=== PATIENT | male | born 1990 | race Caucasian/White ===

== ENCOUNTER → 2022-06-09 | Outpatient (CLI) | payer OTHER, SELFPAY ==
[2022-06-09 10:50] LABS: Erythrocyte Sedimentation Rate 5 mm/hr (0-20)
[2022-06-09 10:52] LABS: Absolute Lymphocyte Count 1.24 X10^3/uL (0.83-4.51); Absolute Neutrophil Count 4.2 X10^3/uL (2.0-7.7); Basophil# 0.02 X10^3/uL; Basophil% 0.3 % (0-1); Eosinophil# 0.04 X10^3/uL; Eosinophils% 0.6 % (0-5); Hematocrit 44.5 % (40-54); Hemoglobin 14.9 g/dL (13.0-16.5); Lymphocyte # 1.24 X10^3/ul (0.83-4.51); Mean Corp Hgb Conc 33.5 g/dL (32-36); Mean Corpuscular Hgb 30.5 pg (27.0-32.0); Mean Platelet Vol. 11.2 fl (6.2-12.0); Monocyte# 0.72 X10^3/uL; Monocyte% 11.6 % (0-10); NRBC Flagged by Analyzer 0 % (0-5); Neutrophil # 4.17 X10^3/uL (2.7-7.7); Neutrophil % 67.3 % (47-70); Platelet Count 196 K/mm3 (150-450); RBC Distribution Width CV 12.3 % (11.6-14.6); RBC Distribution Width SD 40.7 fl (35.1-43.9); Red Blood Count 4.89 M/mm3 (4.6-6.2); White Blood Count 6.2 K/mm3 (4.4-11.0)
[2022-06-09 11:26] LABS: ALB/GLOB Ratio 1.1 RATIO (0.9-2.4); AST(SGOT) 16 U/L (15-37); Alanine Aminotransfer ALT/SGPT 21 U/L (16-61); Albumin, Serum 4.2 g/dL (3.2-5.0); Alkaline Phosphatase 71 U/L (45-117); Anion Gap 6 (5-15); BUN 17 mg/dL (7-18); BUN/Creat Ratio 16.3 RATIO (10-20); CRP < 2.90 mg/L (0.0-3.0); Chloride 105 mmol/L (98-107); Creatinine, Serum 1.04 mg/dL (0.70-1.30); EST Glomerular Filtration Rate 89 mL/min (>60); Est Glom Filt Rate - Afr Amer 108 mL/min (>60); Globulin 3.8 g/dL (2.2-4.2); Glucose 104 mg/dL (74-106); LDH 128 U/L (87-241); Sodium Level 140 mmol/L (136-145)
[2022-06-10 12:08] LABS: Anti-Centromere B Ab <0.2 AI (0.0-0.9); Anti-Chromatin <0.2 AI (0.0-0.9); Anti-Jo <0.2 AI (0.0-0.9); Anti-Scleroderma-70 AB <0.2 AI (0.0-0.9); RNP Ab 0.2 AI (0.0-0.9); SJOGREN'S Anti-SS-A test < 0.2 AI (0.0-0.9); SJOGREN'S Anti-SS-B test < 0.2 AI (0.0-0.9); Smith Ab <0.2 AI (0.0-0.9)
[2022-06-10 13:22] LABS: Anti-dsDNA Ab 1 IU/mL (0-9)
[2022-06-11 09:08] LABS: Endomysial Antibody IgA Negative (Negative)
[2022-06-11 13:46] LABS: Immunoglobulin A 248 mg/dL (90-386); t-Transglutaminase IgA <2 U/mL (0-3)
[2022-06-14 08:09] LABS: Albumin 4.1 g/dL (2.9-4.4); Alpha-1-Globulins 0.2 g/dL (0.0-0.4); Alpha-2-Globulins 0.6 g/dL (0.4-1.0); Cytoplasmic Ab (C-ANCA) <1:20 titer (Neg:<1:20); Gamma Globulin 1.5 g/dL (0.4-1.8); Immunoglobulin A 240 mg/dL (90-386); Immunoglobulin E 113 IU/mL (6-495); Immunoglobulin G 1310 mg/dL (603-1613); Immunoglobulin M 164 mg/dL (20-172); PROEL- TOTAL PROTEIN 7.4 g/dL (6.0-8.5)
[2022-06-14 17:12] LABS: Perinuclear Ab (P-ANCA) <1:20 titer (Neg:<1:20)
== END | disposition home or self-care (01) ==
PROVIDERS: Referring Provider Nurse Practitioner Adult Health; Visit Provider Nurse Practitioner Adult Health
DX: R19.8 Other specified symptoms and signs involving the digestive system and abdomen (principal); K62.5 Hemorrhage of anus and rectum
CPT/HCPCS: 36415; 80053; 82784; 82785; 83516; 83615; 84165; 85025; 85652; 86140; 86225; 86235; 86255; 86256; 86334

== ENCOUNTER → 2022-07-02 | Outpatient (CLI) | payer OTHER, SELFPAY ==
[2022-07-04 08:18] LABS: Hepatitis B Surface Antibody Non-Reactive; Rubella IgG Reactive (Nonreactive)
[2022-07-06 15:08] LABS: HEPATITIS B SURFACE AG Negative (Negative); Hep C Antibodies 0.1 s/co ratio (0.0-0.9); Hepatitis A IgM Antibody Negative (Negative); Hepatitis B Core AB IgM Negative (Negative); QNTFERON TB Mitogen Value > 10.00 IU/mL (.); QNTFERON TB Nil Value 0.02 IU/mL (.); QNTFERON TB1+ Ag Value 0.02 IU/mL (.); QNTFERON TB2+ Ag Value 0.03 IU/mL (.)
[2022-07-06 15:32] LABS: Calprotectin, Stool 121 ug/g (0-120)
[2022-07-07 07:39] LABS: QNTIFERON TB Positive Criteria Negative (Negative); Rubeola IgG Ab 94.6 AU/mL (Immune >16.4); V-Zoster IgG (Immunity) 580 index (Immune >165)
== END | disposition home or self-care (01) ==
LOC: LABSPEC 09:07
PROVIDERS: Referring Provider Nurse Practitioner Adult Health; Visit Provider Nurse Practitioner Adult Health
DX: R19.8 Other specified symptoms and signs involving the digestive system and abdomen (principal); K51.90 Ulcerative colitis, unspecified, without complications; K62.5 Hemorrhage of anus and rectum
CPT/HCPCS: 36415; 80074; 83630; 83993; 86480; 86706; 86735; 86762; 86765; 86787

== ENCOUNTER → 2022-07-18 | Outpatient (CLI) | payer OTHER, SELFPAY ==
--- NOTE | 2022-07-18 07:30 | CT_ITS ---
EXAM: CT ABDOMEN AND PELVIS WITH INTRAVENOUS CONTRAST CLINICAL INDICATION: ulcerative colitis -- oral and iv TECHNIQUE: Helically acquired images were obtained of the abdomen and pelvis with intravenous contrast. This CT exam was performed using one or more of the following dose reduction techniques: automated exposure control, adjustment of the mA and/or kV according to patient size, and/or use of iterative reconstruction technique. This report was created using [employer] report generation technology. CONTRAST: Oral and amp; IV Readi-CAT and amp; 100mL Isovue-300 COMPARISON: None. FINDINGS: LOWER THORAX: Normal. Lung bases are clear. No cardiomegaly. No pericardial effusion. ABDOMEN: LIVER: Normal. Homogeneous. No focal mass. GALLBLADDER AND BILE DUCTS: Normal. No calcified gallstones. No gallbladder distention or wall edema. No intra- or extrahepatic biliary ductal dilation. PANCREAS: Normal. No focal cystic or solid mass. SPLEEN: Normal. Normal size without focal cystic or solid mass. ADRENALS: Normal. No nodules. KIDNEYS AND URETERS: Normal. Normal renal size and position. No hydronephrosis. STOMACH AND BOWEL: Normal. No bowel distention. No focal inflammatory change. PELVIS: APPENDIX: Appendix is visualized and normal in appearance. BLADDER: Normal. REPRODUCTIVE: Unremarkable as visualized. No mass. ABDOMEN and PELVIS: INTRAPERITONEAL SPACE: Trace amount of free fluid noted within the pelvis of uncertain significance. No free air. BONES/JOINTS: Normal. No suspicious lytic or blastic abnormality. SOFT TISSUES: Normal. No discrete abdominal or pelvic wall hernia. VASCULATURE: Normal. Abdominal aorta is non-dilated. LYMPH NODES: Normal. No enlarged lymph nodes. CT/Abdomen/Pelvis WITH Contrast IMPRESSION: No evidence of inflammatory bowel disease. Electronically Signed: Torsten Chaney MD at 7:58 EDT ,
== END | disposition home or self-care (01) ==
PROVIDERS: Referring Provider Nurse Practitioner Adult Health; Visit Provider Nurse Practitioner Adult Health
DX: K51.90 Ulcerative colitis, unspecified, without complications (principal); K62.5 Hemorrhage of anus and rectum; R19.8 Other specified symptoms and signs involving the digestive system and abdomen
CPT/HCPCS: 74177; Q9967

== ENCOUNTER 2022-08-25 05:29 | Day surgery (SDC) | payer OTHER, SELFPAY ==
--- NOTE | 2022-08-25 | COLBX_PTH ---
PATIENT: RENÉ SILVESTRE LOC: [facility] U#:[id number] AGE/SX: 32/M ROOM: RE08/25/[address]: Dr. Pablo Robles DO : 1990 BED: DIS: 08/25/2022 SPEC #: [id number] RECD: 08/25/22 12:48 STATUS: SHERI ZULEYKA #: [id number] GERALDO: 08/25/22 00:[address]: Pablo Robles DEPT: SURGICAL PATHOLOGY RECD BY: Michael Vargas ENTERED: 08/25/22 12:49 SP TYPE: COLON BX OTHR DR: JESSA Sinclair Tissues: A - Ileum, NOS B - Ascending colon C - Transverse colon D - Descending colon E - Sigmoid colon biopsy F - Rectum, NOS Procedures: Surgery Specimen Level IV HEADER OPERATION: Colonoscopy (MAC) PRE-OP DIAGNOSIS: Rectal tenesmus TISSUE SUBMITTED: A ? Terminal ileum biopsy, B ? Ascending colon biopsy, C ? Transverse colon biopsy, D ? Descending colon biopsy, E ? Sigmoid colon biopsy, F ? Rectal biopsy MICROSCOPIC DIAGNOSIS A. Terminal ileum, biopsy: No pathologic change. B. Ascending colon, biopsy: No pathologic change. C. Transverse colon, biopsy: No pathologic change. D. Descending colon, biopsy: No pathologic change. E. Sigmoid colon, biopsy: No pathologic change. F. Rectum, biopsy: Chronic active colitis. See comment. AM:melanie 08/26/2022 COMMENT F. Sections show glandular distortion, expansion of lamina propria by inflammatory cells and focal cryptitis. Prominent lymphoid aggregates are present; however, no granulomas are identified. No fissuring ulcers are seen and there is no evidence of dysplasia. Clinical correlation is suggested. MICROSCOPIC DESCRIPTION Slides are reviewed. GROSS DESCRIPTION A - Received in fixative is one container labeled with the patient's name and designated terminal ileum. The specimen consists of multiple irregular fragments of light chau soft tissue that in aggregate measure 1.5 x 0.3 x 0.1 cm. The specimen is totally submitted in one cassette. B - Received in fixative is one container labeled with the patient's name and designated ascending colon biopsy. The specimen consists of multiple irregular fragments of light chau soft tissue that in aggregate measure 1.5 x 0.5 x 0. cm. The specimen is totally submitted in one cassette. C - Received in fixative is one container labeled with the patient's name and designated transverse colon biopsy. The specimen consists of multiple irregular fragments of light chau soft tissue that in aggregate measure 1.2 x 0.3 x 0.1 cm. The specimen is totally submitted in one cassette. D - Received in fixative is one container labeled with the patient's name and designated descending colon biopsy. The specimen consists of multiple irregular fragments of light chau soft tissue that in aggregate measure 1 x 0.4 x 0.1 cm. The specimen is totally submitted in one cassette. E - Received in fixative is one container labeled with the patient's name and designated sigmoid colon biopsy. The specimen consists of multiple irregular fragments of light chau soft tissue that in aggregate measure 1 x 0.5 x 0.1 cm. The specimen is totally submitted in one cassette. F - Received in fixative is one container labeled with the patient's name and designated rectal biopsy. The specimen consists of multiple irregular fragments of light chau soft tissue that in aggregate measure 1 x 0.5 x 0.1 cm. The specimen is totally submitted in one cassette. / SJ:rg 08/25/2022 TC:2 CPT: 12182 x6
[2022-08-25 05:51] VITALS: BP 114/76; PULSE 95; RESP 188; TEMP 36.9; O2SAT 100; BMI 22.6
[2022-08-25] MEDS: Lactated Ringers 1,000 ML 15 ML IV (06:02)
--- NOTE | 2022-08-25 06:36 | HP.PCM_ITS ---
History and Physical Date of Admission: 08/25/22 RENÉ SILVESTRE, is a 31 M who presents to the office today for episodes of bowel urgency and bright red blood per rectum.? The most recent episode was in March 2022, this lasted about 1 month.? He recalls that the first episode was probably about 5 years ago, the episodes used to be so minor that he really did not pay them any attention, they may have only lasted for a day or a week, may have only occurred once a year or so.? The episodes have always resolved spontaneously, including the most recent one. During the most recent episode in March, he had frequent trips to bathroom, feels urgent need to have BM, but then nothing happens, took laxative once since he thought he might be constipated, had a BM then but didn't give relief of the sense of needing to go.? Has urgency but then only passes some mucus or gas. Once passed stool with ruffled edges, softer than normal.? May have up to 6x per day to relieve gas, but no diarrhea. This woke him up once at night. No abdominal pains at all. No abdominal cramping. Might have line of red blood on side of stool or multiple drops of blood in the toilet bowl. Especially frequent episodes of tenesmus in the evenings when he gets home from work from 5-9 pm. Urgent tenesmus after meals but that's not the only time. Kept a food diary, d idn't find any triggers. Cut out gluten and dairy for a day but no change in symptoms.? He did not have any systemic symptoms associated with this episode or previous episodes.? Denies fever, chills, fatigue, myalgias, rashes. Denies heartburn, reflux, dysphagia, nausea, vomiting.? Since the most recent episode he is back to his normal bowel pattern; for him normal is having urgent bowel movements, typically 1 BM in the morning and possibly another 1 after work at 5 PM.? This is formed stools.? No accidents. 04/07/2022 labs: CBC within normal limits, CMP within normal limits, CRP within normal limits Occasional canker sores throughout lifetime, better over time. No rashes. No eye symptoms. No joint issues.? He has had no hospitalizations, no surgeries, no significant acute illnesses or injuries, no chronic illnesses. Eats very healthfully, no fast food or pop. He doesn't drink alcohol or smoke. He is a new car get ready mechanic. He keeps very active. 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 No family history of inflammatory bowel disease or other autoimmune disorders. ROS Const Constitutional: No fatigue ENT ENT: No difficulty swallowing Gastro GI: Positive for change in bowel habits and Blood in stool; No abdominal pain, belching, bloating, change in stool character, coffee ground emesis, constipation, cramping, diarrhea, heartburn, difficulty swallowing, feeling full early, excessive flatus, incontinent of stools, Vomiting blood/hematemesis, loose stools, Black,tarry stools, nausea/dyspepsia, pain with swallowing, vomiting or other Musc Musculoskeletal: No joint pain Skin Skin: No yellowing of the eye or itchy eyes Psych Psychiatric: No anxiety and No depression Endo Endocrine: No fatigue Aller/Imm Allergy/Immunologic: No itchy eyes Trace/Lymp Hematologic/Lymphatic: No easy bleeding or easy bruising Exam Const General: cooperative, healthy appearing and well developed Nutritional Appearance: average body habitus and well nourished Orientation: alert, awake and oriented x3 HENMT Head: normal to inspection Eyes General: appearance normal, both eyes and all related structures Neck Neck: normal visual inspection Resp Effort & Inspection: normal respiratory effort GI Inspection: normal to inspection Palpation: soft, no hepatosplenomegaly, no masses and nontender Skin General: no rashes or lesions noted Neuro Gait: normal gait Extrem General: normal to inspection Psych Mood: euthymic mood Affect: normal affect Assessment and Plan Assessment and Plan (1) Tenesmus (rectal): ?Status:?Acute ?Plan: Healthy very nice 31-year-old male with recurrent episodes of tenesmus, rectal bleeding, mucus per rectum, 1 episode of nocturnal tenesmus.? DDx is suspicious for IBD.? Start with biochemical workup, we will do stool tests for inflammat ion, labs for inflammation, autoimmune disorders, celiac disease, inflammatory bowel disease profile. Will order CT after labs are back, we will want to get enteroscopy if labs point to Crohn's.? Discussed the possibility of capsule endoscopy.? We will call him with the results of labs and the recommended next step.? Will get him scheduled for upper and lower endoscopy. (2) Rectal bleeding: ?Status:?Acute ? ? ? Orders: Orders Comprehensive Metabolic Profil Today K62.5 - Hemorrhage of anus and rectum, R19.8 - Other specified symptoms and signs involving the digestive system and abdomen ? CRP Today K62.5 - Hemorrhage of anus and rectum, R19.8 - Other specified symptoms and signs involving the digestive system and abdomen ? LDH Today K62.5 - Hemorrhage of anus and rectum, R19.8 - Other specified symptoms and signs involving the digestive system and abdomen ? CBC W/Diff, Automated Today K62.5 - Hemorrhage of anus and rectum, R19.8 - Other specified symptoms and signs involving the digestive system and abdomen ? Erythrocyte Sed Rate Today K62.5 - Hemorrhage of anus and rectum, R19.8 - Other specified symptoms and signs involving the digestive system and abdomen ? PHAM Comprehensive Panel Today K62.5 - Hemorrhage of anus and rectum, R19.8 - Other specified symptoms and signs involving the digestive system and abdomen ? Calprotectin, Stool Today K62.5 - Hemorrhage of anus and rectum, R19.8 - Other specified symptoms and signs involving the digestive system and abdomen ? Stool Lactoferrin/WBC Today K62.5 - Hemorrhage of anus and rectum, R19.8 - Other specified symptoms and signs involving the digestive system and abdomen ? ANCA Today K62.5 - Hemorrhage of anus and rectum, R19.8 - Other specified symptoms and signs involving the digestive system and abdomen ? Celiac Disease Profile Today K62.5 - Hemorrhage of anus and rectum, R19.8 - Ot her specified symptoms and signs involving the digestive system and abdomen ? Immunoglobulins G/A/M/E Today K62.5 - Hemorrhage of anus and rectum, R19.8 - Other specified symptoms and signs involving the digestive system and abdomen ? RADHA + Protein Elect, Serum Today K62.5 - Hemorrhage of anus and rectum, R19.8 - Other specified symptoms and signs involving the digestive system and abdomen ? Miscellaneous Lab Procedure Today K62.5 - Hemorrhage of anus and rectum, R19.8 - Other specified symptoms and signs involving the digestive system and abdomen ? I have re-examined the patient. There are no clinical changes since date of exam.
[2022-08-25 07:00] VITALS: BP 114/76; BP 96/61; PULSE 60; RESP 18; TEMP 36.6; O2SAT 100
--- NOTE | 2022-08-25 07:03 | OP.COLON_ITS ---
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 Refer to note in patient chart for documentation of history and physical. Last Colonoscopy: none. The patient's first colonoscopy is today. Complications: No immediate complications. Procedure: Pre-Anesthesia Assessment: - Prior to the procedure, a History and Physical was performed, and patient medications and allergies were reviewed. The risks and benefits of the procedure and the sedation options and risks were discussed with the patient. All questions were answered and informed consent was obtained. Patient identification and proposed procedure were verified by the physician in the pre-procedure area. Mental Status Examination: alert and oriented. Airway Examination: normal oropharyngeal airway and neck mobility. Respiratory Examination: clear to auscultation. CV Examination: normal. Prophylactic Antibiotics: The patient does not require prophylactic antibiotics. Prior Anticoagulants: The patient has taken no previous anticoagulant or antiplatelet agents. ASA Grade Assessment: II - A patient with mild systemic disease. After reviewing the risks and benefits, the patient was deemed in satisfactory condition to undergo the procedure. The anesthesia plan was to use moderate sedation / analgesia (conscious sedation). Immediately prior to administration of medications, the patient was re-assessed for adequacy to receive sedatives. The heart rate, respiratory rate, oxygen saturations, blood pressure, adequacy of pulmonary ventilation, and response to care were monitored throughout the procedure. The physical status of the patient was re-assessed after the procedure. After I obtained informed consent, the scope was passed under direct vision. Throughout the procedure, the patient's blood pressure, pulse, and oxygen saturations were monitored continuously. The colonoscope was introduced through the anus and advanced to the terminal ileum. The colonoscopy was performed without difficulty. The patient tolerated the procedure well. The quality of the bowel preparation was good. Scope In: 6:42:07 AM Scope Withdrawal Time 0 hours 8 minutes 9 seconds Scope Out: 6:54:20 AM Total Procedure Duration Time 0 hours 12 minutes 13 seconds Findings: The perianal and digital rectal examinations were normal. Inflammation characterized by congestion (edema), erosions, erythema, friability and granularity was found in a continuous and circumferential pattern from the anus to the rectum. The recto-sigmoid colon, the sigmoid colon, the descending colon, the splenic flexure, the transverse colon, the hepatic flexure, the ascending colon, the cecum, the appendiceal orifice and the ileocecal valve were spared. This was mild in severity, and when compared to previous examinations, the findings are new. Biopsies were taken with a cold forceps for histology. Verification of patient identification for the specimen was done. Estimated blood loss was minimal. The terminal ileum appeared normal. Biopsies were taken with a cold forceps for histology. Verification of patient identification for the specimen was done. Estimated blood loss was minimal. Impression: - Proctitis. Inflammation was found from the anus to the rectum. This was mild in severity, new compared to previous examinations. Biopsied. - The examined portion of the ileum was normal. Biopsied. Recommendation: - Discharge patient to home. - Resume previous diet. - Continue present medications. - Recommend medication for inflammatory bowel disease daily. - Repeat colonoscopy is recommended for surveillance. The colonoscopy date will be determined after pathology results from today's exam become available for review. Procedure Code(s): --- Professional --- 59796, Colonoscopy, flexible; with biopsy, single or multiple CPT copyright 2017 [employer]. All rights reserved. The codes documented in this report are preliminary and upon computer language coder review may be revised to meet current compliance requirements. Pablo Robles DO 08/25/2022 7:03:27 AM This report has been signed electronically. Number of Addenda: 0 Note Initiated On: 08/25/2022 6:19 AM
--- NOTE | 2022-08-25 07:04 | OP.CCLET_ITS ---
08/25/2022 Marciano Sinclair Re : Colonoscopy procedure for Travis Castro Cosby This procedure was performed on August. My impressions and recommendations are as follows: Impressions : - Proctitis. Inflammation was found from the anus to the rectum. This was mild in severity, new compared to previous examinations. Biopsied. - The examined portion of the ileum was normal. Biopsied. Recommendations : - Discharge patient to home. - Resume previous diet. - Continue present medications. - Recommend medication for inflammatory bowel disease daily. - Repeat colonoscopy is recommended for surveillance. The colonoscopy date will be determined after pathology results from today's exam become available for review. My findings are described in the full procedure note, which is enclosed. If I can be of further assistance, please feel free to contact me at . Sincerely, Pablo Robles, 08/25/2022 7:03:27 AM This report has been signed electronically.
[2022-08-25 07:05] VITALS: BP 114/76; BP 99/65; PULSE 64; RESP 18; O2SAT 100
[2022-08-25 07:10] VITALS: BP 111/63; BP 114/76; PULSE 72; RESP 18; O2SAT 100
[2022-08-25 07:15] VITALS: BP 114/76; BP 118/66; PULSE 61; RESP 18; TEMP 37.2; O2SAT 100
[2022-08-25 07:26] VITALS: BP 114/76
== END 2022-08-25 07:33 | disposition home or self-care (01) ==
LOC: EN 05:29 → AC 05:30
PROVIDERS: Visit Provider Internal Medicine Gastroenterology
PROC: 0DJD8ZZ Inspection of Lower Intestinal Tract, Via Natural or Artificial Opening Endoscopic (ICD-10-PCS; CPT 45378; principal; 2022-08-25 06:25)
DX: K52.9 Noninfective gastroenteritis and colitis, unspecified (principal); K62.89 Other specified diseases of anus and rectum
CPT/HCPCS: 45380; 88305; J7120; J2405

== ENCOUNTER → 2022-12-17 | Outpatient (CLI) | payer BC, SELFPAY ==
[2022-12-17 09:57] LABS: Absolute Lymphocyte Count 1.53 X10^3/uL (0.83-4.51); Basophil# 0.02 X10^3/uL; Basophil% 0.3 % (0-1); Eosinophil# 0.13 X10^3/uL; Hematocrit 43.3 % (40-54); Hemoglobin 14.5 g/dL (13.0-16.5); Lymphocyte # 1.53 X10^3/ul (0.83-4.51); Lymphocyte % 23.9 % (19-41); Mean Corp Hgb Conc 33.5 g/dL (32-36); Mean Corpuscular Hgb 30.6 pg (27.0-32.0); Mean Corpuscular Volume 91.4 fL (80-94); Mean Platelet Vol. 11.2 fl (6.2-12.0); Monocyte# 0.71 X10^3/uL; Monocyte% 11.1 % (0-10); NRBC Flagged by Analyzer 0 % (0-5); Neutrophil # 4.01 X10^3/uL (2.7-7.7); Neutrophil % 62.5 % (47-70); Platelet Count 184 K/mm3 (150-450); RBC Distribution Width CV 12.5 % (11.6-14.6); Red Blood Count 4.74 M/mm3 (4.6-6.2); White Blood Count 6.4 K/mm3 (4.4-11.0)
[2022-12-17 10:30] LABS: Erythrocyte Sedimentation Rate 2 mm/hr (0-20)
[2022-12-17 10:46] LABS: ALB/GLOB Ratio 1.1 RATIO (0.9-2.4); AST(SGOT) 17 U/L (15-37); Alanine Aminotransfer ALT/SGPT 21 U/L (16-61); Albumin, Serum 4.1 g/dL (3.2-5.0); Alkaline Phosphatase 63 U/L (45-117); Anion Gap 7 (5-15); BUN 20 mg/dL (7-18); BUN/Creat Ratio 18.9 RATIO (10-20); CRP < 2.90 mg/L (0.0-3.0); Calcium,Total 8.9 mg/dL (8.5-10.1); Chloride 107 mmol/L (98-107); Creatinine, Serum 1.06 mg/dL (0.70-1.30); EST Glomerular Filtration Rate 87 mL/min (>60); Est Glom Filt Rate - Afr Amer 105 mL/min (>60); Globulin 3.7 g/dL (2.2-4.2); Glucose 94 mg/dL (74-106); Potassium 3.7 mmol/L (3.5-5.1); Protein, Total 7.8 g/dL (6.4-8.2); Sodium Level 141 mmol/L (136-145)
[2022-12-21 16:48] LABS: Calprotectin, Stool 17 ug/g (0-120)
== END | disposition home or self-care (01) ==
LOC: LAB 09:10
PROVIDERS: Visit Provider Nurse Practitioner Adult Health
DX: K51.90 Ulcerative colitis, unspecified, without complications (principal)
CPT/HCPCS: 36415; 80053; 83630; 83993; 85025; 85652; 86140